=== PATIENT | female | born 1975 | race Caucasian/White ===

== ENCOUNTER → 2019-03-12 | Outpatient (REF) ==
--- NOTE | 2019-03-12 18:27 | Diagnostic Imaging Report ---
EXAMINATION: Right shoulder at 03:53 p.m. INDICATION: Shoulder pain. FINDINGS: Three views were obtained. There are no prior studies available for comparison. There is no fracture, dislocation, or acute bony abnormality evident. The glenohumeral and acromioclavicular joints are fairly well maintained. The soft tissues are unremarkable. IMPRESSION: 1. There is no evidence for an acute bony abnormality. 2. These results were discussed with Dr. Horn. Dictated by: Dictated on workstation # [id number]
--- NOTE | 2019-03-12 18:28 | Diagnostic Imaging Report ---
EXAMINATION: Left wrist. INDICATION: Wrist pain. FINDINGS: Three views were obtained. There are no prior studies available for comparison. There is no fracture, dislocation, or acute bony abnormality evident. There is mild degenerative disease of the radiocarpal joint. The soft tissues are unremarkable. IMPRESSION: 1. There is no evidence for an acute bony abnormality. 2. These results were discussed with Dr. Horn. Dictated by: Dictated on workstation # [id number]
== END | disposition home or self-care (01) ==
LOC: OCC 15:29
PROVIDERS: ATTEND Family Medicine
CPT/HCPCS: 73030; 73110

== ENCOUNTER 2021-11-10 21:13 | Emergency (ER) | payer SELFPAY ==
[~2021-11-10] VITALS: Ht 162.5 cm; Wt 95.8 kg
[2021-11-10] MEDS ORDERED: ONDANSETRON 4 MG/2 ML (SDV) Z0FRAN IVP ONE (21:45)
[2021-11-10] MEDS ORDERED: LIDOCAINE 2% VISCOUS 15 ML UDC PO ONE (21:45)
[2021-11-10] MEDS ORDERED: ANTACID SUSP 30 ML UDC (MYLANTA) PO ONE (21:45)
--- NOTE | 2021-11-10 21:45 | ED Abdominal Pain ---
General Stated Complaint: ABD PAIN, VOM, PAIN THROUGH BACK Source of Information: Patient, Family Exam Limitations: No Limitations History of Present Illness Date Seen by Provider: November 10, 2021 Time Seen by Provider: 21:19 Initial Comments 46-year-old female with no pertinent past medical history coming in due to upper abdominal pain with nausea and nonbloody nonbilious vomiting. Abdominal pain has been going on for couple months intermittently. She says she seen nobody for this in the past. Vomitings been going on intermittently for the past couple weeks. Its not every day, but she has vomited a couple times a day with the last episode around 30 minutes ago. Last had a bowel movement yesterday which was slightly loose, and says she has been very constipated. She says sometimes it can be a week in between episodes of bowel movements. Denies any fever, hemoptysis, significant chest pain, shortness of breath, weakness, numbness, rash, vaginal bleeding, dysuria, or any other concerns. She has had her gallbladder removed as well as a partial hysterectomy. Allergies and Home Medications Allergies Coded Allergies: codeine (Verified Allergy, Unknown, nausea, 11/10/21) Patient Home Medication List Home Medication List Reviewed: Yes Review of Systems Review of Systems Constitutional: No fever EENTM: No Blurred Vision Respiratory: No Symptoms Reported Cardiovascular: No Symptoms Reported Gastrointestinal: Abdominal Pain, Constipated, Nausea, Vomiting Genitourinary: No Symptoms Reported Musculoskeletal: no symptoms reported Skin: no symptoms reported Psychiatric/Neurological: No Symptoms Reported Endocrine: No Symptoms Reported Hematologic/Lymphatic: No Symptoms Reported All Other Systems Reviewed Negative Unless Noted: Yes Past Egkvxxk-Iplwup-Txrdvq Hx Patient Social History Tobacco Use?: Yes Tobacco type used: Cigarettes Past Medical History Surgeries: Yes Gallbladder, Hysterectomy, Tonsillectomy Physical Exam Vital Signs Vital Signs - First Documented 11/10/21 21:48 Temp 36.9 Pulse 73 Resp 18 B/P (MAP) 187/99 (128) Pulse Ox 98 O2 Delivery Room Air Capillary Refill : Height/Weight/BMI Height: '" Weight: lbs. oz. kg; BMI Method: General Appearance: WD/WN, no apparent distress HEENT: PERRL/EOMI, normal ENT inspection, pharynx normal Neck: non-tender, full range of motion, supple, normal inspection Respiratory: chest non-tender, lungs clear, normal breath sounds, no respiratory distress, no accessory muscle use Cardiovascular: regular rate, rhythm, no edema, no murmur Gastrointestinal: normal bowel sounds, soft; No distended, No guarding, No rebound; tenderness Extremities: normal range of motion, non-tender, normal inspection, no pedal edema, no calf tenderness, normal capillary refill Back: normal inspection, no CVA tenderness, no vertebral tenderness Neurologic/Psychiatric: no motor/sensory deficits, alert, normal mood/affect Skin: normal color, warm/dry Lymphatic: no adenopathy Progress/Results/Core Measures Results/Orders Lab Results Laboratory Tests Test 11/10/21 21:37 11/10/21 21:42 Range/Units Urine Color YELLOW Urine Clarity CLEAR Urine pH 6.5 5-9 Urine Specific [place] <=1.005 1.016-1.022 Urine Protein NEGATIVE NEGATIVE Urine Glucose (UA) NEGATIVE NEGATIVE Urine Ketones NEGATIVE NEGATIVE Urine Nitrite NEGATIVE NEGATIVE Urine Bilirubin NEGATIVE NEGATIVE Urine Urobilinogen 1.0 < = 1.0 MG/DL Urine Leukocyte Esterase NEGATIVE NEGATIVE Urine RBC (Auto) TRACE-I H NEGATIVE Urine RBC NONE /HPF Urine WBC 0-2 /HPF Urine Squamous Epithelial Cells 0-2 /HPF Urine Renal Epithelial Cells NONE /HPF Urine Crystals NONE /LPF Urine Bacteria FEW H /HPF Urine Casts NONE /LPF Urine Mucus NEGATIVE /LPF Urine Culture Indicated NO White Blood Count 10.8 4.3-11.0 10^3/uL Red Blood Count 5.18 H 3.80-5.11 10^6/uL Hemoglobin 15.4 11.5-16.0 g/dL Hematocrit 47 35-52 % Mean Corpuscular Volume 91 80-99 fL Mean Corpuscular Hemoglobin 30 25-34 pg Mean Corpuscular Hemoglobin Concent 33 32-36 g/dL Red Cell Distribution Width 11.9 10.0-14.5 % Platelet Count 251 130-400 10^3/uL Mean Platelet Volume 10.4 9.0-12.2 fL Immature Granulocyte % (Auto) 0 % Neutrophils (%) (Auto) 61 42-75 % Lymphocytes (%) (Auto) 29 12-44 % Monocytes (%) (Auto) 6 0-12 % Eosinophils (%) (Auto) 4 0-10 % Basophils (%) (Auto) 1 0-10 % Neutrophils # (Auto) 6.6 1.8-7.8 10^3/uL Lymphocytes # (Auto) 3.1 1.0-4.0 10^3/uL Monocytes # (Auto) 0.6 0.0-1.0 10^3/uL Eosinophils # (Auto) 0.5 H 0.0-0.3 10^3/uL Basophils # (Auto) 0.1 0.0-0.1 10^3/uL Immature Granulocyte # (Auto) 0.0 0.0-0.1 10^3/uL Sodium Level 142 135-145 MMOL/L Potassium Level 3.4 L 3.6-5.0 MMOL/L Chloride Level 99 98-107 MMOL/L Carbon Dioxide Level 27 21-32 MMOL/L Anion Gap 16 H 5-14 MMOL/L Blood Urea Nitrogen 11 7-18 MG/DL Creatinine 0.98 0.60-1.30 MG/DL Estimat Glomerular Filtration Rate 72 BUN/Creatinine Ratio 11 Glucose Level 95 70-105 MG/DL Calcium Level 10.0 8.5-10.1 MG/DL Corrected Calcium 9.7 8.5-10.1 MG/DL Total Bilirubin 0.5 0.1-1.0 MG/DL Aspartate Amino Transf (AST/SGOT) 18 5-34 U/L Alanine Aminotransferase (ALT/SGPT) 21 0-55 U/L Alkaline Phosphatase 110 40-136 U/L Troponin I < 0.028 <0.028 NG/ML Total Protein 7.1 6.4-8.2 GM/DL Albumin 4.4 3.2-4.5 GM/DL Lipase 66 8-78 U/L My Orders Orders - NORY CRAWFORD MD Comprehensive Metabolic Panel (11/10/21 21:45) Lipase (11/10/21 21:45) Ua Culture If Indicated (11/10/21 21:45) Ed Iv/Invasive Line Start (11/10/21 21:45) Cbc With Automated Diff (11/10/21 21:45) Ondansetron Injection (Zofran Injectio (11/10/21 21:45) Lidocaine 2% Viscous 15 Ml (Xylocaine Vi (11/10/21 21:45) Antacid Suspension (Mylanta Suspension (11/10/21 21:45) Ct Abdomen/Pelvis W (11/10/21 21:45) Ekg Tracing (11/10/21 21:45) Troponin I [place] (11/10/21 21:45) Iohexol Injection (Omnipaque 350 Mg/Ml 1 (11/10/21 22:30) Received Contrast (Hold Metformin- Contr (11/10/21 22:30) Ns (Ivpb) (Sodium Chloride 0.9% Ivpb Bag (11/10/21 22:30) Medications Given in ED Current Medications Medications Dose Ordered Sig/Luis Route Start Time Stop Time Status Last Admin Dose Admin Al Hydrox/Mg Hydrox/Simethicone 30 ml ONCE ONCE PO 11/10/21 21:45 11/10/21 21:50 DC 11/10/21 22:11 30 ML Iohexol 100 ml ONCE ONCE IV 11/10/21 22:30 11/10/21 22:31 11/10/21 22:20 100 ML Lidocaine HCl 15 ml ONCE ONCE PO 11/10/21 21:45 11/10/21 21:50 DC 11/10/21 22:11 15 ML Ondansetron HCl 4 mg ONCE ONCE IVP 11/10/21 21:45 11/10/21 21:50 DC 11/10/21 22:11 4 MG Sodium Chloride 100 ml ONCE ONCE IV 11/10/21 22:30 11/10/21 22:31 11/10/21 22:20 80 ML Vital Signs/I&O 11/10/21 21:48 Temp 36.9 Pulse 73 Resp 18 B/P (MAP) 187/99 (128) Pulse Ox 98 O2 Delivery Room Air Progress Progress Note : Progress Note 46-year-old female with above history coming in due to abdominal pain. ABCs were intact and vitals were stable on presentation. Physical exam with some upper abdominal tenderness but no signs of peritonitis. Given the nausea, vomiting, constipation, CT abdomen pelvis ordered to assess for obstruction versus some other etiology. Basic labs including LFTs and lipase normal. CT with no acute findings. She was given Zofran for nausea which did help. Repeat abdominal exam reassuring. I believe she is stable for discharge with outpatient follow-up. She was sent home with strict return precautions. Initial ECG Impression Date: November 10, 2021 Initial ECG Impression Time: 21:51 Initial ECG Rate: 66 Initial ECG Rhythm: Normal Sinus Comment Narrow QRS, normal axis, no significant ST changes, Falter T wave inversion in lead III which is nonspecific Diagnostic Imaging Diagonstic Imaging: CT (abd/pelvis) Comments NAME: TELLO QUINONEZ [facility] REC#: [id number] PT STATUS: REG ER : 1975 PHYSICIAN: NORY CRAWFORD MD ADMIT DATE: 11/10/21/ER Draft Date of Exam:11/10/21 CT ABDOMEN/PELVIS W CT ABDOMEN/PELVIS W TECHNIQUE: Multiple contiguous axial images were obtained through the abdomen and pelvis after administration of intravenous contrast. All CT scans use one or more of the following dose optimizing techniques: automated exposure control, MA and/or KvP adjustment based on patient size and exam type or iterative reconstruction. INDICATION: Upper abdominal pain and nausea COMPARISON: None available. FINDINGS: Lower chest: The lung bases are clear. No pericardial or pleural effusion. Peritoneum: No free intraperitoneal air or fluid. Liver and biliary system: The liver is normal. Cholecystectomy. No biliary duct dilatation. Spleen and Pancreas: Spleen is normal. The pancreas enhances normally without mass lesion or peripancreatic inflammatory changes. Adrenals: Normal. tract: The kidneys enhance normally without suspicious mass or obstruction. Urinary bladder is distended without wall thickening. Hysterectomy. No adnexal mass. GI tract: Stomach is partially filled with fluid and air. No bowel obstruction. No pericolonic inflammatory changes. Normal appendix. Vasculature and Lymph nodes: Normal caliber aorta has mild atherosclerotic plaquing. No abdominal or pelvic lymphadenopathy. Musculoskeletal: No concerning osseous lesion. IMPRESSION: 1. No acute obstructive or inflammatory process. Dictated on workstation # [id number] Dict: 11/10/212219 Trans: 11/10/212222 [facility] [id number] Interpreted by: DANY BRUCE MD Electronically signed by: Departure Impression Primary Impression: Epigastric pain Additional Impression: Vomiting in adult Disposition: 01 HOME, SELF-CARE Condition: Stable Departure-Patient Inst. Decision time for Depature: 22:29 Referrals: NO,LOCAL PHYSICIAN (PCP) Primary Care Physician JOE PIMENTEL DO Patient Instructions: Nausea and Vomiting, Adult ED Add. Discharge Instructions: Fortunately your labs look good, and specifically does not look like you have hepatitis. The CT of your abdomen and pelvis also was reassuring. If this continues, you may need an upper GI scope which can be done by a GI doctor. He can also be done by some of our surgeons here. If things persist you can call Dr. Pimentel to see if he will evaluate you. Try taking [id number] Maalox, or Tylenol for pain. I sent nausea medicines to your pharmacy. Scripts Ondansetron (Ondansetron Odt) 4 Mg Tab.rapdis 4 MG PO Q6H PRN for NAUSEA/VOMITING-1ST LINE for 5 Days, #20 TAB Prov: NORY CRAWFORD MD 11/10/21 Work/School Note: Work Release Form Date Seen in the Emergency Department: November 10, 2021 Return to Work: Nov 12, 2021 Restrictions: No Restrictions NORY CRAWFORD MD November 10, 2021 21:45
[2021-11-10 21:54] LABS: BILIRUBIN,URINE NEGATIVE (NEGATIVE); CLARITY,URINE CLEAR; COLOR,URINE YELLOW; GLUCOSE, URINE (UA) NEGATIVE (NEGATIVE); KETONES,URINE NEGATIVE (NEGATIVE); LEUKOCYTE ESTERASE ,URINE NEGATIVE (NEGATIVE); NITRITE,URINE NEGATIVE (NEGATIVE); PH,URINE 6.5 (5-9); PROTEIN,URINE NEGATIVE (NEGATIVE)
[2021-11-10 21:55] LABS: BASOPHILS # (AUTO) 0.1 10^3/uL (0.0-0.1); BASOPHILS % (AUTO) 1 % (0-10); EOSINOPHILS # (AUTO) 0.5 10^3/uL (0.0-0.3); EOSINOPHILS % (AUTO) 4 % (0-10); HEMATOCRIT 47 % (35-52); HEMOGLOBIN 15.4 g/dL (11.5-16.0); LYMPHOCYTES # (AUTO) 3.1 10^3/uL (1.0-4.0); LYMPHOCYTES % (AUTO) 29 % (12-44); MEAN CORPUSCULAR HEMOGLOBIN 30 pg (25-34); MEAN CORPUSCULAR HGB CONC 33 g/dL (32-36); MEAN CORPUSCULAR VOLUME 91 fL (80-99); MEAN PLATELET VOLUME 10.4 fL (9.0-12.2); MONOCYTES # (AUTO) 0.6 10^3/uL (0.0-1.0); MONOCYTES % (AUTO) 6 % (0-12); NEUTROPHILS # (AUTO) 6.6 10^3/uL (1.8-7.8); NEUTROPHILS % (AUTO) 61 % (42-75); PLATELET COUNT 251 10^3/uL (130-400); WHITE BLOOD COUNT 10.8 10^3/uL (4.3-11.0)
[2021-11-10 22:02] LABS: BACTERIA,URINE FEW /HPF; SQUAMOUS EPITHELIAL CELL,UR 0-2 /HPF; WBC,URINE 0-2 /HPF
[2021-11-10 22:09] LABS: ALBUMIN 4.4 GM/DL (3.2-4.5); POTASSIUM 3.4 MMOL/L (3.6-5.0)
[2021-11-10 22:12] LABS: TOTAL PROTEIN 7.1 GM/DL (6.4-8.2)
[2021-11-10 22:13] LABS: BILIRUBIN,TOTAL 0.5 MG/DL (0.1-1.0)
[2021-11-10 22:15] LABS: CREATININE SERUM 0.98 MG/DL (0.60-1.30)
--- NOTE | 2021-11-10 22:23 | Diagnostic Imaging Report ---
CT ABDOMEN/PELVIS W TECHNIQUE: Multiple contiguous axial images were obtained through the abdomen and pelvis after administration of intravenous contrast. All CT scans use one or more of the following dose optimizing techniques: automated exposure control, MA and/or KvP adjustment based on patient size and exam type or iterative reconstruction. INDICATION: Upper abdominal pain and nausea COMPARISON: None available. FINDINGS: Lower chest: The lung bases are clear. No pericardial or pleural effusion. Peritoneum: No free intraperitoneal air or fluid. Liver and biliary system: The liver is normal. Cholecystectomy. No biliary duct dilatation. Spleen and Pancreas: Spleen is normal. The pancreas enhances normally without mass lesion or peripancreatic inflammatory changes. Adrenals: Normal. tract: The kidneys enhance normally without suspicious mass or obstruction. Urinary bladder is distended without wall thickening. Hysterectomy. No adnexal mass. GI tract: Stomach is partially filled with fluid and air. No bowel obstruction. No pericolonic inflammatory changes. Normal appendix. Vasculature and Lymph nodes: Normal caliber aorta has mild atherosclerotic plaquing. No abdominal or pelvic lymphadenopathy. Musculoskeletal: No concerning osseous lesion. IMPRESSION: 1. No acute obstructive or inflammatory process. Dictated by: Dictated on workstation # [id number]
[2021-11-10] MEDS ORDERED: ONDA4TAB11 PO (22:30)
[2021-11-10] MEDS ORDERED: IOHEXOL 350 MG/ML 100 ML (OMNIPAQUE 350) VIAL IV ONE (22:30)
[2021-11-10] MEDS ORDERED: NS 100 ML (IVPB) BAG IV ONE (22:30)
[2021-11-10] MEDS ORDERED: HOLD METFORMIN - RECEIVED CONTRAST 20 ML VIAL IV SCH (22:30)
[2021-11-10 22:35] VITALS: BP 155/93
== END 2021-11-10 22:38 | disposition home or self-care (01) ==
LOC: EDUNIT# 21:13 → ER 21:32
DX: R10.13 Epigastric pain (principal); R11.2 Nausea with vomiting, unspecified; F17.210 Nicotine dependence, cigarettes, uncomplicated; Z90.49 Acquired absence of other specified parts of digestive tract; Z90.710 Acquired absence of both cervix and uterus
CPT/HCPCS: 36415; 74177; 80053; 81000; 83690; 84484; 85025; 93005